=== PATIENT | male | born 1955 | race Caucasian/White ===

== ENCOUNTER 2018-09-06 17:37 | Emergency (ER) | payer BC, MEDICAID ==
[~2018-09-06] VITALS: Ht 175.3 cm; Wt 86.2 kg
--- NOTE | 2018-09-06 18:12 | NUR ---
Patient discharged to home in stable conditon. Written and verbal after care instructions given. Patient verbalizes understanding of instructions.
--- NOTE | 2018-09-06 18:15 | NUR ---
PT JUST DISCLOSED THAT THE PT HAS RECTAL BLEED . MD NOTIFIED
[2018-09-06 18:40] LABS: BASOPHILS # (AUTO) 0.1 K/uL (0.0-8.0); BASOPHILS % (AUTO) 0.7 % (0.0-2.0); EOSINOPHILS # (AUTO) 0.2 K/uL (0.0-0.7); EOSINOPHILS % (AUTO) 3.2 % (0.0-7.0); HEMATOCRIT 51.1 % (36.7-47.1); HEMOGLOBIN 17.7 g/dL (12.5-16.3); LYMPHOCYTES # (AUTO) 1.4 K/uL (20.0-40.0); LYMPHOCYTES % (AUTO) 18.8 % (20.5-51.5); MEAN CORPUSCULAR HEMOGLOBIN 30.7 uug (23.8-33.4); MEAN CORPUSCULAR HGB CONC 35 g/dL (32.5-36.3); MEAN CORPUSCULAR VOLUME 88.9 fL (73.0-96.2); MONOCYTES # (AUTO) 0.7 K/uL (2.0-10.0); MONOCYTES % (AUTO) 9.8 % (0.0-11.0); NEUTROPHILS % (AUTO) 67.5 % (38.5-71.5); PLATELET COUNT (AUTO) 194 K/uL (152-348); RED BLOOD CELL COUNT(AUTO) 5.75 MIL/uL (4.06-5.63); WHITE BLOOD COUNT (AUTO) 7.5 K/uL (3.6-10.2)
[2018-09-06 18:52] LABS: POTASSIUM 4.1 mmol/L (3.5-5.1)
[2018-09-06 19:05] LABS: BILIRUBIN,DIRECT 0.3 mg/dL (0.0-0.2); BILIRUBIN,TOTAL 2.1 mg/dL (0.2-1.0)
--- NOTE | 2018-09-06 19:22 | NUR ---
Patient discharged to home in stable conditon. Written and verbal after care instructions given. Patient verbalizes understanding of instructions.
[2018-09-06 19:23] VITALS: BP 148/71
== END 2018-09-06 19:24 | disposition home or self-care (01) ==
LOC: ER 17:41
DX: S40.862A Insect bite (nonvenomous) of left upper arm, initial encounter (principal); S80.262A Insect bite (nonvenomous), left knee, initial encounter; R07.9 Chest pain, unspecified; R10.9 Unspecified abdominal pain; K62.5 Hemorrhage of anus and rectum; B35.4 Tinea corporis; W57.XXXA Bitten or stung by nonvenomous insect and other nonvenomous arthropods, initial encounter; Y93.89 Activity, other specified; Y92.89 Other specified places as the place of occurrence of the external cause; Y99.8 Other external cause status
CPT/HCPCS: 36415; 70030-TC; 71045; 83690; 85025; 85730; 86850; 86900; 86901; 93005; A4663

== ENCOUNTER 2018-09-21 16:58 | Emergency (ER) | payer BC, MEDICAID ==
[~2018-09-21] VITALS: Ht 175.3 cm; Wt 86.6 kg
[2018-09-21 17:44] LABS: BASOPHILS % (AUTO) 0.6 % (0.0-2.0); EOSINOPHILS # (AUTO) 0.2 K/uL (0.0-0.7); EOSINOPHILS % (AUTO) 2.4 % (0.0-7.0); HEMATOCRIT 48.4 % (36.7-47.1); HEMOGLOBIN 16.9 g/dL (12.5-16.3); LYMPHOCYTES # (AUTO) 1.5 K/uL (20.0-40.0); LYMPHOCYTES % (AUTO) 18.1 % (20.5-51.5); MEAN CORPUSCULAR HEMOGLOBIN 30.9 uug (23.8-33.4); MEAN CORPUSCULAR HGB CONC 35 g/dL (32.5-36.3); MEAN CORPUSCULAR VOLUME 88.8 fL (73.0-96.2); MONOCYTES # (AUTO) 0.8 K/uL (2.0-10.0); MONOCYTES % (AUTO) 9.5 % (0.0-11.0); NEUTROPHILS # (AUTO) 5.8 K/uL (1.8-8.9); NEUTROPHILS % (AUTO) 69.4 % (38.5-71.5); PLATELET COUNT (AUTO) 200 K/uL (152-348); RED BLOOD CELL COUNT(AUTO) 5.46 MIL/uL (4.06-5.63); WHITE BLOOD COUNT (AUTO) 8.3 K/uL (3.6-10.2)
[2018-09-21 17:47] LABS: POTASSIUM 3.8 mmol/L (3.5-5.1)
[2018-09-21 17:52] LABS: BILIRUBIN,DIRECT 0.3 mg/dL (0.0-0.2); BILIRUBIN,TOTAL 2.3 mg/dL (0.2-1.0); TOTAL PROTEIN, SERUM 7.1 g/dL (6.4-8.2)
--- NOTE | 2018-09-21 18:18 | NUR ---
Patient is resting comfortably on nathalierrenan, EJ, pending results and disposition
--- NOTE | 2018-09-21 18:41 | NUR ---
Patient discharged to home in stable conditon and brisk steady gait. Written and verbal after care instructions given. Patient verbalizes understanding of instructions.
== END 2018-09-21 18:42 | disposition home or self-care (01) ==
LOC: ER 17:00
DX: R41.0 Disorientation, unspecified (principal); I63.81 Other cerebral infarction due to occlusion or stenosis of small artery; E80.7 Disorder of bilirubin metabolism, unspecified
CPT/HCPCS: 36415; 70450; 85025; A4663